=== PATIENT | male | born 1965 | race Caucasian/White ===

== ENCOUNTER 2018-09-01 10:14 | Emergency (ER) | payer SELFPAY ==
[~2018-09-01] VITALS: Ht 157.5 cm; Wt 62.7 kg
[2018-09-01] MEDS ORDERED: LIDOCAINE HCL/PF 1% 10 MG/ML 5ML VIAL IJ ONE (11:30)
[2018-09-01] MEDS ORDERED: INSULIN REGULAR (HUMULIN R) 300UNITS/3ML SUBCUT ONE (12:15)
[2018-09-01 13:31] VITALS: BP 156/84
== END 2018-09-01 13:35 | disposition home or self-care (01) ==
LOC: ER 10:14
DX: L02.11 Cutaneous abscess of neck (principal); E11.9 Type 2 diabetes mellitus without complications; R50.9 Fever, unspecified; R09.81 Nasal congestion
CPT/HCPCS: 10060; 82962; 87070; 87205; 96372; 99283; A4217; J1815; J3490; Z7610

== ENCOUNTER 2019-02-15 08:35 | Emergency (ER) | payer SELFPAY ==
[~2019-02-15] VITALS: Ht 167.6 cm; Wt 62.0 kg
[2019-02-15] MEDS ORDERED: SODIUM CHLORIDE 0.9% 1,000 ML IV ONE (09:15)
[2019-02-15] MEDS ORDERED: VISCOUS LIDOCAINE 2% 15 ML UDC PO STA (09:15)
[2019-02-15] MEDS ORDERED: MAGNESIUM/ALUMINUM HYDROXIDE/SIMETHICONE 30ML UDC PO STA (09:15)
[2019-02-15] MEDS ORDERED: FAMOTIDINE 20MG/2ML VIAL IV STA (09:15)
[2019-02-15 09:34] LABS: BASOPHILS % 1.1 % (0.0-2.0); EOSINOPHILS % 0.9 % (0.0-5.0); HEMATOCRIT. 37.2 % (42.0-52.0); HEMOGLOBIN. 13.6 g/dL (14.0-18.0); LYMPHOCYTES % 38.4 % (20.0-50.0); MEAN CORPUSCULAR HEMOGLOBIN 30.9 pg (28.0-32.0); MEAN CORPUSCULAR VOLUME 84.4 fL (80.0-94.0); MEAN PLATELET VOLUME 8.4 fl (7.4-10.4); MONOCYTES % 7.7 % (2.0-8.0); NEUTROPHILS % 51.9 % (40.0-76.0); PLATELET 260 x1000/uL (130-400); RED CELL DISTRIBUTION WIDTH 13.3 % (11.6-14.6)
[2019-02-15 09:40] LABS: CHLORIDE 104 mEq/L (98-107)
[2019-02-15] MEDS ORDERED: INSULIN REGULAR (HUMULIN R) 300UNITS/3ML SUBCUT ONE (10:45)
[2019-02-15] MEDS ORDERED: MAGNESIUM CITRATE 300ML SOLUTION PO ONE (12:00)
[2019-02-15 12:23] VITALS: BP 145/83
== END 2019-02-15 12:37 | disposition home or self-care (01) ==
LOC: ER 08:40
DX: K59.00 Constipation, unspecified (principal); E11.65 Type 2 diabetes mellitus with hyperglycemia
CPT/HCPCS: 36415; 74177; 80053; 82962; 83605; 83690; 85025; 85610; 96361; 96372; 96374; 99284; J1815; J3490; J7030; Z7610